=== PATIENT | female | born 1990 ===

== ENCOUNTER 2018-02-08 10:58 | Emergency (ER) | payer BC, OTHER ==
[2018-02-08 11:34] LABS: #Basophils 0.1 thou/uL (0.0-0.2); #Eosinphils 0.1 thou/uL (0.0-0.7); #Lymphocytes 1.8 thou/uL (1.20-3.40); #Monocytes 0.3 thou/uL (0.11-0.59); #Neutrophils 3.7 thou/uL (1.40-6.50); %Eosinophils 2.1 % (0.0-10.0); %Monocytes 5.4 % (0.0-10.0); %Neutrophils 61.6 % (42.0-75.0); Hemoglobin 14.2 g/dL (12.0-16.0); Mean Corpuscular Hemoglobin 31.9 pg (27.0-31.0); Mean Corpuscular Volume 93.8 fl (81.0-99.0); Mean Platelet Volume 7.9 fL (7.4-10.4); Platelet Count 244 thou/uL (130-400); RBC Distribution Width 11.7 % (11.5-14.5); Red Blood Cell (RBC) Count 4.46 mill/uL (4.20-5.40); White Blood Cell (WBC) Count 5.9 thou/uL (4.8-10.8)
[2018-02-08 11:43] LABS: BHCG - Serum Negative (NEGATIVE); Pregs Control Background? CLEAR/WHITE (CLR/WHITE); Pregs Control Bar Appear? YES (CONTROL BAR)
[2018-02-08] MEDS ORDERED: Ondansetron HCl/PF 4 MG/2 ML Vial ONE (11:44)
[2018-02-08] MEDS ORDERED: Morphine 4 MG/ML VIAL ONE ×2 (11:44→14:10)
[2018-02-08] MEDS ORDERED: Ketorolac Tromethamine 30 MG/ML VIAL ONE (11:44)
[2018-02-08 11:56] LABS: ALT (SGPT) 20 U/L (8-55); AST (SGOT) 16 U/L (5-34); Albumin 4.1 g/dL (3.5-5.0); Alkaline Phosphatase 60 U/L (40-150); Anion Gap 11 mmol/L (10-20); BUN (Urea Nitrogen) 10 mg/dL (7.0-18.7); Bilirubin, Total 0.2 mg/dL (0.2-1.2); Calc. Creatinine Clearance 0 mL/min (70-130); Calcium 9.2 mg/dL (7.8-10.44); Carbon Dioxide 25 mmol/L (22-29); Estimated GFR-MDRD Greater than 90; Glucose 101 mg/dL (70-105); Potassium 4.6 mmol/L (3.5-5.1); Protein, Total 7.1 g/dL (6.0-8.3); Sodium 137 mmol/L (136-145)
[2018-02-08 11:58] LABS: CK (CPK) 58 U/L (29-168); Lipase 6 U/L (8-78)
[2018-02-08 11:59] LABS: Chloride 106 mmol/L (98-107)
--- NOTE | 2018-02-08 12:27 | CT ---
CT ABDOMEN AND PELVIS WITHOUT CONTRAST: Date: 02/08/18 HISTORY: Abdominal pain, vaginal bleeding. FINDINGS: Absence of oral and IV contrast reduces the sensitivity of exam, particularly for evaluation of solid organs and bowel. The lung bases are clear. The patient is post cholecystectomy and appendectomy. No free air or free f luid is seen in the abdomen or pelvis. No calculi noted in the kidneys, ureters, or the urinary bladd er. No hydroureteronephrosis is seen on either side. Uterus and ovaries are present. There is a 5.2 c m left adnexal mass. No acute osseous abnormalities are identified. IMPRESSION: 1. No CT evidence of urinary tract calculi or obstruction. 2. 5.2 cm left adnexal mass. Further evaluation with pelvic ultrasound is recommended. POS: ANEL
[2018-02-08 12:30] LABS: Bilirubin Negative (Negative); Blood, Urine Negative (Negative); Clarity CLEAR (Clear); Glucose, Urine (Dipstick) Negative (Negative); Leukocyte Negative (Negative); Nitrite Negative (Negative); Protein, Urine (Dipstick) Negative (Neg-Trace); Specific Gravity, Urine 1.013 (1.002-1.036); Urobilinogen 0.2 mg/dL (0.2-1.0)
[2018-02-08 12:36] LABS: Pregnancy Test - Urine (BHCG) Negative (Negative); Pregu Control Background? CLEAR/WHITE (CLR/WHITE); Pregu Control Bar Appear? YES (CONTROL BAR); Specific Gravity 1.013 (1.002-1.036)
--- NOTE | 2018-02-08 14:02 | ULT ---
PELVIC SONOGRAM TRANSABDOMINAL AND TRANSVAGINAL IMAGING WITH DUPLEX EVALUATION: HISTORY: Pelvic pain. Bleeding. FINDINGS: Urinary bladder is decompressed. Uterus has a heterogeneous echotexture measuring up to 7.8 cm. The endometrium is 0.3 cm. Nabothian cysts arise from the cervix. The right ovary is 2.8 cm and has a normal appearance with good color and spectral Doppler flow. The left ovary is 6.1 cm and contains a 5.0 cm cyst. Good color and spectral Doppler flow. IMPRESSION: Large left ovarian cyst, 5.0 cm. No evidence of torsion. POS: AMBERLY
[2018-02-08] MEDS ORDERED: Lorazepam 2 MG/ML VIAL ONE (14:10)
[2018-02-09 22:48] LABS: Chlamydia by PCR Not Detected (NotDetected); GC by PCR Not Detected (NotDetected)
== END 2018-02-08 15:10 | disposition home or self-care (01) ==
LOC: ERS 10:58
DX: N83.202 Unspecified ovarian cyst, left side (principal); F41.9 Anxiety disorder, unspecified; F17.210 Nicotine dependence, cigarettes, uncomplicated
CPT/HCPCS: 36415; 74176; 76856; 80053; 81003; 81025; 82550; 83690; 84703; 85025; 87480; 87491; 87510; 87591; 87660; 96374; 96375; 96376; J1885; J2060; J2270; J2405